=== PATIENT | male | born 1995 | race Two or more races ===

== ENCOUNTER 2018-10-08 01:45 | Emergency (ER) | payer SELFPAY ==
[~2018-10-08] VITALS: Ht 182.9 cm; Wt 68.0 kg
--- NOTE | 2018-10-08 02:05 | NUR ---
PT BIBSELF FROM HOME C/C LEFT UPPER CHEST PAIN NONRADIATING X2 HRS S/P TAKING ADDERAL 25MG W/ MORE THAN NORMAL COFFEE WHILE DRIVING UBER. +ANXIOUS. HX OF ANXIETY. PT AOX4. GIRLFRIEND AT BEDSIDE. NAD NOTED. RESP EVEN AND UNLABORED. PT ON MONITOR IN BED 10. WILL CONTINUE TO MONITOR.
--- NOTE | 2018-10-08 02:29 | NUR ---
TECH AT BEDSIDE FOR EKG
[2018-10-08 03:23] LABS: CALCIUM, SERUM 9.4 mg/dL (8.5-10.1); CARBON DIOXIDE 27 mmol/L (21-32); CHLORIDE 100 mmol/L (98-107); GLUCOSE 92 mg/dL (74-106); POTASSIUM 3.9 mmol/L (3.5-5.1); SODIUM SERUM 138 mmol/L (136-145); UREA NITROGEN, BLOOD 12 mg/dL (7-18)
[2018-10-08 03:45] LABS: BASOPHILS % (AUTO) 0.3 % (0.0-2.0); EOSINOPHILS % (AUTO) 0.5 % (0.0-6.0); HEMATOCRIT 47 % (39-51); HEMOGLOBIN 16.3 g/dL (13.5-17.5); LYMPHOCYTES # (AUTO) 1.2 /CMM (0.8-4.8); MEAN CORPUSCULAR HGB CONC 35 g/dl (31.0-36.0); MEAN CORPUSCULAR VOLUME 87 fL (80-96); MONOCYTES # (AUTO) 0.9 /CMM (0.1-1.30); MONOCYTES % (AUTO) 7.8 % (2.0-12.0); NEUTROPHILS # (AUTO) 9.7 /CMM (1.8-8.9); NEUTROPHILS % (AUTO) 81.4 % (43.0-81.0); PLATELET COUNT (AUTO) 303 /CMM (150-450); RED BLOOD CELL COUNT(AUTO) 5.39 MIL/uL (4.5-6.0); WHITE BLOOD COUNT (AUTO) 11.9 K/uL (4.3-11.0)
[2018-10-08 03:47] VITALS: BP 133/81
--- NOTE | 2018-10-08 04:02 | NUR ---
Patient is resting comfortably in bed with eyes closed. Easily aroused. VSS
--- NOTE | 2018-10-08 05:18 | NUR ---
IV removed. Catheter intact and site benign. Pressure and 4x4 applied to site. No bleeding noted.Patient discharged to home in stable condition. Written and verbal after care instructions given. Patient verbalizes understanding of instruction. PT AMBULATORY WITH A STEADY GAIT.
== END 2018-10-08 05:21 | disposition home or self-care (01) ==
LOC: ER 01:52
DX: F41.9 Anxiety disorder, unspecified (principal); R94.31 Abnormal electrocardiogram [ECG] [EKG]; F41.0 Panic disorder [episodic paroxysmal anxiety]
CPT/HCPCS: 36415; 80048; 84484 ×2; 85025; 93005 ×2; 99284; A4606